=== PATIENT | male | born 1945 | race American Indian/Alaskan Native ===

== ENCOUNTER → 2018-05-21 09:12 | Outpatient (CLI) | payer MEDICARE, OTHER, SELFPAY ==
[2018-05-21 10:27] LABS: Alanine Aminotransferase 37 IU/L (21-72); Albumin 4.1 g/dL (3.5-5.0); Albumin Globulin Ratio 1.3 (1.0-2.8); Alkaline Phosphatase 52 U/L (38-126); Aspartate Aminotransferase 35 IU/L (17-59); BUN Creatinine Ratio 17.5 (6-22); Bilirubin Total 1.7 mg/dL (0.2-1.3); Blood Urea Nitrogen 14 mg/dL (9-20); Calcium 8.9 mg/dL (8.4-10.2); Carbon Dioxide 24 mmol/L (22-32); Chloride 106 mmol/L (98-107); Cholesterol 119 mg/dL (140-199); Estimated Glomerular Filt Rate > 60.0 mL/min (>60); Globulin 3.2 g/dL (1.7-4.1); Glucose 99 mg/dL (80-110); HDL Cholesterol 25 mg/dL (40-60); LDL Cholesterol Calculated 77 mg/dL (<100); Potassium 4.9 mmol/L (3.4-5.1); Sodium 141 mmol/L (137-145); Total Protein 7.3 g/dL (6.3-8.2); Triglycerides 87 mg/dL (35-150)
[2018-05-21 10:28] LABS: HEMOLYSIS 92 (0-50)
[2018-05-21 10:38] LABS: Basophils Absolute Auto 0 /uL (0-100); Basophils Percent Auto 0.5 % (0-2); Eosinophils Absolute Auto 100 /uL (0-450); Hemoglobin 14.4 g/dL (13.5-17.5); Lymphocytes Absolute Auto 2100 /uL (1100-4500); Lymphocytes Percent Auto 35.7 % (25-40); Mean Corpuscular HGB Conc 33.4 % (30-36); Mean Corpuscular Hemoglobin 30.1 PG (26-34); Mean Corpuscular Volume 90.2 fL (80-100); Monocytes Absolute Auto 600 /uL (0-900); Monocytes Percent Auto 10.8 % (3-14); Neutrophils Absolute Auto 3000 /uL (1500-7000); Red Blood Cell Count 4.77 X10^6/uL (4.5-5.9); White Blood Cell Count 5.8 X10^3/uL (4.5-11.0)
[2018-05-21 10:41] LABS: Add Manual Diff / Slide Review SLIDE REVIEW
[2018-05-21 10:54] LABS: Thyroid Stimulating Hormone 2.31 uIU/mL (0.47-4.68)
[2018-05-21 10:55] LABS: Prostate Specific Antigen Scrn 0.462 ng/mL (0.1-4.0)
[2018-05-21 11:15] LABS: Platelet Count 68 X10^3/uL (150-400); RBC Morphology Normal Morphology
[2018-05-21 11:16] LABS: Platelet Estimate Decreased on smear
[2018-05-21 11:27] LABS: Creatinine Urine Random 270.8 mg/dL
[2018-05-21 11:32] LABS: Microalbumi Creatinin Ratio Ur 3.6 ug/mg CR (<30)
== END ==
PROVIDERS: Family Provider Family Medicine; PCP Family Medicine; Visit Provider Family Medicine
DX: E78.5 Hyperlipidemia, unspecified (principal); I10 Essential (primary) hypertension; I25.10 Atherosclerotic heart disease of native coronary artery without angina pectoris; R89.9 Unspecified abnormal finding in specimens from other organs, systems and tissues; Z95.1 Presence of aortocoronary bypass graft; Z12.5 Encounter for screening for malignant neoplasm of prostate
CPT/HCPCS: 36415; 80053; 80061; 82043; 82570; 84443; 85025; G0103

== ENCOUNTER → 2018-06-18 15:47 | Outpatient (CLI) | payer MEDICARE, OTHER, SELFPAY ==
[2018-06-18 18:03] LABS: Add Manual Diff / Slide Review NO; Basophils Absolute Auto 0 /uL (0-100); Basophils Percent Auto 0.7 % (0-2); Eosinophils Absolute Auto 100 /uL (0-450); Eosinophils Percent Auto 1.5 % (2-4); Hematocrit 40.4 % (41-53); Hemoglobin 13.5 g/dL (13.5-17.5); Lymphocytes Absolute Auto 1900 /uL (1100-4500); Lymphocytes Percent Auto 29.9 % (25-40); Mean Corpuscular HGB Conc 33.4 % (30-36); Mean Corpuscular Hemoglobin 30.2 PG (26-34); Mean Corpuscular Volume 90.4 fL (80-100); Monocytes Absolute Auto 700 /uL (0-900); Monocytes Percent Auto 11.4 % (3-14); Neutrophils Absolute Auto 3500 /uL (1500-7000); Neutrophils Percent Auto 56.5 % (50-75); Platelet Count 245 X10^3/uL (150-400); Red Blood Cell Count 4.47 X10^6/uL (4.5-5.9); Red Cell Distribution Width 13.5 % (11.6-14.8); White Blood Cell Count 6.2 X10^3/uL (4.5-11.0)
== END ==
PROVIDERS: Family Provider Family Medicine; PCP Family Medicine; Visit Provider Family Medicine
DX: R89.9 Unspecified abnormal finding in specimens from other organs, systems and tissues (principal)
CPT/HCPCS: 36415; 85025

== ENCOUNTER → 2020-05-26 07:02 | Outpatient (CLI) | payer MEDICARE, OTHER, SELFPAY ==
[2020-05-26 08:40] LABS: Alanine Aminotransferase 32 IU/L (<50); Albumin Globulin Ratio 1.3 (1.0-2.8); BUN Creatinine Ratio 15.7 (6-22); Blood Urea Nitrogen 13 mg/dL (9-20); Calcium 9.1 mg/dL (8.4-10.2); Carbon Dioxide 29 mmol/L (22-32); Chloride 104 mmol/L (98-107); Cholesterol 126 mg/dL (140-199); Estimated Glomerular Filt Rate > 60.0 mL/min (>60); Globulin 3.5 g/dL (1.7-4.1); HDL Cholesterol 26 mg/dL (40-60); LDL Cholesterol Calculated 79 mg/dL (<100); Triglycerides 107 mg/dL (35-150)
[2020-05-26 08:42] LABS: HEMOLYSIS 222 (0-50)
[2020-05-26 08:44] LABS: Sodium 141 mmol/L (137-145)
[2020-05-26 09:10] LABS: Free T3, Triiodothyronine Free 2.81 pg/mL (2.77-5.27); Free T4, Direct Thyroxine 0.79 ng/dL (0.78-2.19)
== END ==
PROVIDERS: Family Provider Family Medicine; PCP Nurse Practitioner; Referring Provider Nurse Practitioner; Visit Provider Nurse Practitioner
DX: E78.5 Hyperlipidemia, unspecified (principal); G47.33 Obstructive sleep apnea (adult) (pediatric); I25.10 Atherosclerotic heart disease of native coronary artery without angina pectoris; Z95.1 Presence of aortocoronary bypass graft; Z79.899 Other long term (current) drug therapy
CPT/HCPCS: 36415; 80053; 80061; 84439; 84443; 84481

== ENCOUNTER → 2020-05-27 09:10 | Outpatient (CLI) | payer MEDICARE, OTHER, SELFPAY ==
[2020-05-27 10:20] LABS: Hemoglobin A1C% w Est Avg Glu 5.6 % (4.0-6.0)
[2020-05-27 10:36] LABS: Alanine Aminotransferase 29 IU/L (<50); Albumin Globulin Ratio 1.3 (1.0-2.8); Alkaline Phosphatase 56 U/L (38-126); Aspartate Aminotransferase 33 IU/L (17-59); Bilirubin Total 1.1 mg/dL (0.2-1.3); Blood Urea Nitrogen 13 mg/dL (9-20); Calcium 8.9 mg/dL (8.4-10.2); Carbon Dioxide 26 mmol/L (22-32); Chloride 105 mmol/L (98-107); Cholesterol 119 mg/dL (140-199); Estimated Glomerular Filt Rate > 60.0 mL/min (>60); Globulin 3.2 g/dL (1.7-4.1); Glucose 108 mg/dL (80-110); HDL Cholesterol 26 mg/dL (40-60); HEMOLYSIS < 15 (0-50); LDL Cholesterol Calculated 77 mg/dL (<100); Potassium 4.3 mmol/L (3.4-5.1); Sodium 138 mmol/L (137-145); Total Protein 7.2 g/dL (6.3-8.2); Triglycerides 81 mg/dL (35-150)
[2020-05-27 11:08] LABS: Free T4, Direct Thyroxine 0.86 ng/dL (0.78-2.19)
[2020-05-27 11:22] LABS: Thyroid Stimulating Hormone 3.29 uIU/mL (0.47-4.68)
== END ==
PROVIDERS: Family Provider Family Medicine; PCP Nurse Practitioner; Referring Provider Nurse Practitioner; Visit Provider Nurse Practitioner
DX: Z79.899 Other long term (current) drug therapy (principal); G47.33 Obstructive sleep apnea (adult) (pediatric); Z86.79 Personal history of other diseases of the circulatory system; Z13.1 Encounter for screening for diabetes mellitus
CPT/HCPCS: 36415; 80053; 80061; 83036; 84439; 84443; 84481

== ENCOUNTER → 2021-01-15 16:20 | Outpatient (CLI) | payer MEDICARE, OTHER, SELFPAY ==
[2021-01-19 13:16] LABS: Fecal Immunochemical Test Negative (Negative)
== END ==
PROVIDERS: Family Provider Family Medicine; PCP Nurse Practitioner; Referring Provider Nurse Practitioner; Visit Provider Nurse Practitioner
DX: Z12.11 Encounter for screening for malignant neoplasm of colon (principal)
CPT/HCPCS: 82274

== ENCOUNTER → 2021-09-07 07:00 | Outpatient (CLI) | payer MEDICARE, OTHER, SELFPAY ==
[2021-09-07 07:54] LABS: Alanine Aminotransferase 28 IU/L (<50); Albumin 3.9 g/dL (3.5-5.0); Albumin Globulin Ratio 1.3 (1.0-2.8); Alkaline Phosphatase 69 U/L (38-126); Aspartate Aminotransferase 28 IU/L (17-59); BUN Creatinine Ratio 17.3 (6-22); Bilirubin Total 1.7 mg/dL (0.2-1.3); Blood Urea Nitrogen 14 mg/dL (9-20); Calcium 8.6 mg/dL (8.4-10.2); Carbon Dioxide 24 mmol/L (22-32); Chloride 108 mmol/L (98-107); Cholesterol 115 mg/dL (140-199); Estimated Glomerular Filt Rate > 60 mL/min (>60); Globulin 2.9 g/dL (1.7-4.1); Glucose 114 mg/dL (80-110); HDL Cholesterol 28 mg/dL (40-60); HEMOLYSIS < 15 (0-50); LDL Cholesterol Calculated 72 mg/dL (<100); Sodium 141 mmol/L (137-145); Total Protein 6.8 g/dL (6.3-8.2); Triglycerides 76 mg/dL (35-150)
[2021-09-07 08:07] LABS: Microalbumin Urine Random 1.6 mg/dL (0-1.6)
[2021-09-07 08:08] LABS: Free T4, Direct Thyroxine 0.98 ng/dL (0.78-2.19)
[2021-09-07 08:14] LABS: Microalbumi Creatinin Ratio Ur 3.9 ug/mg CR (<30)
[2021-09-07 08:22] LABS: Thyroid Stimulating Hormone 2.54 uIU/mL (0.47-4.68)
== END ==
PROVIDERS: Family Provider Family Medicine; PCP Nurse Practitioner; Referring Provider Nurse Practitioner; Visit Provider Nurse Practitioner
DX: E78.2 Mixed hyperlipidemia (principal); I10 Essential (primary) hypertension
CPT/HCPCS: 36415; 80053; 80061; 82043; 82570; 84439; 84443; 84481

== ENCOUNTER 2021-09-22 16:21 | Emergency (ER) | payer MEDICARE, OTHER, SELFPAY ==
[2021-09-22 16:28] VITALS: BP 151/74; PULSE 56; RESP 16; TEMP 36.9; O2SAT 99; BMI 35.4
--- NOTE | 2021-09-22 16:32 | DI.RAD.S_ITS ---
PROCEDURE: XR CHEST 1V INDICATIONS: chest pain TECHNIQUE: One view of the chest was acquired. COMPARISON: [facility], , CHEST 2 VIEW, 04/15/2015, 10:25. FINDINGS: Surgical changes and devices: Status post CABG Lungs and pleura: Lungs are clear. No pleural effusions or pneumothorax. Mediastinum: Mediastinal contours appear normal. Heart size is normal. Bones and chest wall: No suspicious bony lesions. Overlying soft tissues appear unremarkable. IMPRESSION: No acute cardiopulmonary disease process. Dictated by: Meghana Lebron MD, PhD on 09/22/2021 at 16:10 Approved by: Meghana Lebron MD, PhD on 09/22/2021 at 16:10
[2021-09-22 17:27] LABS: Alanine Aminotransferase 28 IU/L (<50); Albumin 3.9 g/dL (3.5-5.0); Albumin Globulin Ratio 1.2 (1.0-2.8); Alkaline Phosphatase 65 U/L (38-126); Aspartate Aminotransferase 31 IU/L (17-59); BUN Creatinine Ratio 16.3 (6-22); Bilirubin Total 1.5 mg/dL (0.2-1.3); Blood Urea Nitrogen 13 mg/dL (9-20); Calcium 8.4 mg/dL (8.4-10.2); Carbon Dioxide 25 mmol/L (22-32); Chloride 108 mmol/L (98-107); Creatine Kinase 274 U/L (55-170); Estimated Glomerular Filt Rate > 60 mL/min (>60); Globulin 3.2 g/dL (1.7-4.1); Glucose 108 mg/dL (80-110); HEMOLYSIS < 15 (0-50); INR 1.1 (0.9-1.3); Lipase 70 U/L (23-300); Potassium 3.8 mmol/L (3.4-5.1); Prothrombin Time 12.9 SECONDS (10.1-12.7); Sodium 139 mmol/L (137-145); Total Protein 7.1 g/dL (6.3-8.2)
[2021-09-22 17:30] LABS: PTT Partial Thromboplastin Tim 34 SECONDS (26.4-36.2)
[2021-09-22 17:39] LABS: Troponin I < 0.012 ng/mL (0.01-0.034)
[2021-09-22 17:42] VITALS: BP 133/68; PULSE 62; O2SAT 97
[2021-09-22 17:43] LABS: CKMB % Relative Index 0.6 % (1.5-5.0); Creatine Kinase MB 1.62 ng/mL (<2.37)
[2021-09-22 17:48] LABS: Add Manual Diff / Slide Review NO; Basophils Absolute Auto 0 /uL (0-100); Basophils Percent Auto 0.6 % (0-2); Eosinophils Absolute Auto 100 /uL (0-450); Eosinophils Percent Auto 0.9 % (2-4); Hematocrit 37.5 % (41-53); Hemoglobin 12.9 g/dL (13.5-17.5); Lymphocytes Absolute Auto 1700 /uL (1100-4500); Lymphocytes Percent Auto 27.7 % (25-40); Mean Corpuscular HGB Conc 34.5 % (30-36); Mean Corpuscular Hemoglobin 30.5 PG (26-34); Mean Corpuscular Volume 88.4 fL (80-100); Monocytes Absolute Auto 700 /uL (0-900); Monocytes Percent Auto 11.8 % (3-14); Neutrophils Absolute Auto 3700 /uL (1500-7000); Platelet Count 213 X10^3/uL (150-400); Red Blood Cell Count 4.24 X10^6/uL (4.5-5.9); White Blood Cell Count 6.3 X10^3/uL (4.5-11.0)
[2021-09-22 18:00] VITALS: BP 135/72; PULSE 50; RESP 25; O2SAT 97
--- NOTE | 2021-09-22 18:23 | ED_ITS ---
HPI - General Adult General Chief complaint: Syncope Stated complaint: Fainted, Chest pains Time Seen by Provider: 09/22/21 18:09 History of Present Illness HPI narrative: 76-year-old gentleman with history of coronary artery disease post bypass approximately 6 years ago hyperlipidemia, hypertension who was at home this evening took a sip of water have full mouth of water and began coughing. He continued coughing went from the living room to the kitchen to spit the water out and had a syncopal episode in the kitchen. He has significant musculoskeletal pain linearly across his anterior chest wall as his significant complaint. At this point he has no headache, no acute neurologic changes he feels completely normal. He reports recently no fevers, cough, chills, chest pain, exertional dyspnea or orthopnea. He has had no recent palpitations headaches, weakness, paresthesias. Does note that he has had some upper abdominal pain and early satiety that he talk to his primary care doctor about today with upper and lower endoscopy scheduled. Related Data Home Medications Medication Instructions Recorded Confirmed aspirin 81 mg tablet,delayed 81 mg PO DAILY 07/26/17 09/22/21 release cholecalciferol (vitamin D3) 25 1,000 unit PO DAILY 01/25/18 09/22/21 mcg (1,000 unit) capsule Respironics Dreamstation CPAP #1 ea 07/24/18 09/22/21 Previous Rx's Medication Instructions Recorded [id number] 3.5 See Rx Instructions .Route 04/06/20 mg-10,000 unit/mL-1 % ear .COMPLEX #10 mL drops,susp omega-3 fatty acids 500 mg capsule 1,000 mg PO DAILY #180 caps 04/06/20 triamcinolone acetonide 0.1 % 1 applic topical BID PRN ear rash 04/06/20 topical cream #15 grams cephalexin 500 mg capsule 500 mg PO QID PRN ear infection 05/15/20 #40 caplets atorvastatin 40 mg tablet See Rx Instructions .Route 09/10/21 .COMPLEX #90 tabs metoprolol tartrate 25 mg tablet See Rx Instructions .Route 09/10/21 .COMPLEX #180 tabs Allergies Allergy/AdvReac Type Severity Reaction Status Date / Time No Known Allergies Allergy Uncoded 09/22/21 15:33 Review of Systems Review of Systems Narrative: Remainder of complete review of systems is otherwise unremarkable except for that included in the HPI. 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 Obesity (BMI 30-39.9) Obstructive sleep apnea of adult Personal history of coronary artery disease Snoring Status post double vessel coronary artery bypass (01/17/17) Wears contact lenses Surgical History Anesthesia Family History Father Alzheimer's disease Mother Diabetes mellitus Social History marital status: household members: spouse lives independently: Yes caregiver/support person: No Smoking Status: Never smoker alcohol intake: never additional social history: Member of the [facility] [employer] Smoking Status: Never smoker Exam Initial Vital Signs Initial Vital Signs: Vital Signs Temperature 98.4 F 09/22/21 16:28 Pulse Rate 56 L 09/22/21 16:28 Respiratory Rate 16 09/22/21 16:28 Blood Pressure 151/74 H 09/22/21 16:28 Pulse Oximetry 99 09/22/21 16:28 Oxygen Delivery Method 09/22/21 16:28 General: Healthy appearing, in no acute distress. Able to give a complete and coherent history. Well-nourished well-developed HEENT: Moist mucous membranes, normal sclera with reactive pupils, Neck: No JVD, supple Respiratory: Lungs are clear to auscultation, no wheezing no rales no rhonchi. Full and symmetrical air movement Cardiac: Regular rate and rhythm no murmurs no bruits Chest: No bruising or contusion however he does have tenderness linearly across his anterior chest/mid sternum. Abdomen: Soft, nontender, good bowel tones, no flank pain Skin: Warm and dry, no rashes Neurologic: Grossly neurologically intact with no obvious asymmetries or abnormalities Extremities: No trauma, well perfused Psych: Cooperative, appropriate insight and affect Course Orders Ordered: ED Orders 09/22/21 16:32 XR chest 1V Stat EKG-12 Lead Stat 09/22/21 16:58 Complete Blood Count AUTO DIFF Stat Comprehensive Metabolic Panel Stat Lipase Stat Magnesium Stat Partial Thromboplastin Time Stat Prothrombin Time INR Stat Troponin & CK Cardiac Panel Stat Vital Signs Vital signs: Vital Signs - 8 hr 09/22/21 16:28 Temperature 98.4 F Pulse Rate 56 L Respiratory Rate 16 Blood Pressure 151/74 H Pulse Oximetry 99 Oxygen Delivery Method Room Air Medical Decision Making Lab Data Result diagrams: 09/22/21 16:58 09/22/21 16:58 Labs: Lab Results 09/22/21 09/22/21 09/22/21 Range/Units 16:58 16:58 16:58 WBC 6.3 (4.5-11.0) X10^3/uL RBC 4.24 L (4.5-5.9) X10^6/uL Hgb 12.9 L (13.5-17.5) g/dL Hct 37.5 L (41-53) % MCV 88.4 (80-100) fL MCH 30.5 (26-34) PG MCHC 34.5 (30-36) % RDW 13.0 (11.6-14.8) % Plt Count 213 (150-400) X10^3/uL Neut % (Auto) 59.0 (50-75) % Lymph % (Auto) 27.7 (25-40) % Bibb % (Auto) 11.8 (3-14) % Eos % (Auto) 0.9 L (2-4) % Baso % (Auto) 0.6 (0-2) % Neut # (Auto) 3700 (1465-0754) /uL Lymph # (Auto) 1700 (0490-6173) /uL Bibb # (Auto) 700 (0-900) /uL Eos # (Auto) 100 (0-450) /uL Baso # (Auto) 0 (0-100) /uL PT 12.9 H (10.1-12.7) SECONDS INR 1.1 (0.9-1.3) APTT 34 (26.4-36.2) SECONDS Sodium 139 (137-145) mmol/L Potassium 3.8 (3.4-5.1) mmol/L Chloride 108 H (98-107) mmol/L Carbon Dioxide 25 (22-32) mmol/L BUN 13 (9-20) mg/dL Creatinine 0.80 (0.66-1.25) mg/dL Estimated GFR > 60 (>60) mL/min BUN/Creatinine Ratio 16.3 (6-22) Glucose 108 (80-110) mg/dL Calcium 8.4 (8.4-10.2) mg/dL Magnesium 2.0 (1.6-2.3) mg/dL Total Bilirubin 1.5 H (0.2-1.3) mg/dL AST 31 (17-59) IU/L ALT 28 (<50) IU/L Alkaline Phosphatase 65 (38-126) U/L Total Creatine Kinase 274 H (55-170) U/L CK-MB (CK-2) 1.62 (<2.37) ng/mL CK-MB (CK-2) Rel Index 0.6 L (1.5-5.0) % Troponin I < 0.012 (0.01-0.034) ng/mL Total Protein 7.1 (6.3-8.2) g/dL Albumin 3.9 (3.5-5.0) g/dL Globulin 3.2 (1.7-4.1) g/dL Albumin/Globulin Ratio 1.2 (1.0-2.8) Lipase 70 (23-300) U/L MDM Narrative Medical decision making narrative: 76-year-old gentleman with a syncopal episode after ostensibly choking on some water and having coughing episode. Labs do not indicate acute coronary syndrome, stroke, infection, significant anemia, renal or liver abnormalities. Clinical exam is entirely benign with the exception of musculoskeletal chest pain rate appears that he hit the edge of his kitchen cupboard. I suspect that he had a vasovagal take syncope from the severity of his coughing against a closed glottis as he was trying to not spit up the water in his mouth. At this point findings and concerns are reviewed with patient and his . There is no indication for hospital admission at this time and they are safe for home discharge will recommend ibuprofen and Tylenol to help with the musculoskeletal pain and did caution him that he will likely have more musculoskeletal pain tomorrow. Discharge Plan Departure Patient Disposition: Home Clinical Impression: Acute chest wall pain Syncope Qualifiers: Syncope type: unspecified Qualified Code(s): R55 - Syncope and collapse Instructions: DI for Syncope in Adults (Fainting) Activity Restrictions/Additional Instructions: Thank you for coming in today I suspect that you had this syncopal episode because of the persistent coughing why you are trying to keep her mouth closed so that you did not spit water all across the living room. There is no evidence of heart attack, heart arrhythmias, infection, significant blood loss, liver abnormalities, kidney abnormalities or stroke. At this time there is no indication that you need to stay in the hospital. The pain across your anterior chest is likely because you did hit your chest on the counter as you fell. Using 400 mg of ibuprofen (2 vwvq-iqu-bkwrnrn pills) and 1 Tylenol every 6 hours can be very helpful in controlling pain. If you find your having other episodes or unusual findings this evening, please feel free to return to the ER Prescriptions: No Action cephalexin 500 mg capsule 500 mg PO QID PRN (Reason: ear infection) Qty: 40 0RF Rx Instructions: Take 1 tab by mouth for ear infection atorvastatin 40 mg tablet See Rx Instructions .ROUTE .COMPLEX Qty: 90 0RF Dose Instruction: Take one tablet by mouth every evening Rx Instructions: Take one tablet by mouth every evening metoprolol tartrate 25 mg tablet See Rx Instructions .ROUTE .COMPLEX Qty: 180 0RF Dose Instruction: Take 1/2 tablet (12.5mg) by mouth twice daily, due for labs and appointment Rx Instructions: Take 1/2 tablet (12.5mg) by mouth twice daily, due for labs and appointment [id number]-[id number]-OO 3.5-10,000-1 mg/mL-unit/mL-% drops,suspension See Rx Instructions .ROUTE .COMPLEX Qty: 10 4RF Dose Instruction: Instill 4 drops into affected ear(s) 3 times daily Rx Instructions: Instill 4 drops into affected ear(s) 3 times daily omega-3 fatty acids 500 mg capsule 1,000 mg PO DAILY Qty: 180 3RF Rx Instructions: Take 1 caps daily for triglycerides triamcinolone acetonide 0.1 % cream 1 applic Topical BID PRN (Reason: ear rash) Qty: 15 2RF Rx Instructions: Apply topically twice daily as needed for ear rash aspirin 81 mg tablet,delayed release (DR/EC) 81 mg PO DAILY cholecalciferol (vitamin D3) 1,000 unit capsule 1,000 unit PO DAILY (DME) RespirBioLeaps Dreamstation CPAP Qty: 1 Dose Instruction: As directed Label Comments: Pressure: 6-12 cmH2O DME: [facility] Rx Instructions: As directed Referrals: Melvina Batres ARNP [Primary Care Provider] -
[2021-09-22 18:30] VITALS: BP 153/87; PULSE 50; RESP 20; O2SAT 99
[2021-09-22] MEDS: ACETAMINOPHEN 325 MG TABLET PO (18:45)
[2021-09-22] MEDS: IBUPROFEN 400 MG TABLET PO (18:46)
--- NOTE | 2021-09-22 18:50 | PC.NURSE ---
pt states he took a sip of water and then started having a random coughing attack, so he stood up and ran into the kitchen to try and spit the water out but as he was leaning over the sink, he must have passed out, he woke up sitting on the floor leaning against the counter and had chest pain in a horizontal line like he fell on his counter. when patient went to his physical with his doctor, they sent him here for work up.
== END 2021-09-22 18:58 | disposition home or self-care (01) ==
PROVIDERS: Emergency Medicine; Emergency Provider Emergency Medicine; Family Provider Family Medicine; PCP Nurse Practitioner
DX: R07.89 Other chest pain (principal); R55 Syncope and collapse; R10.10 Upper abdominal pain, unspecified
CPT/HCPCS: 71045; 80053; 82550; 82553; 83690; 83735; 84484; 85025; 85610; 85730; 93005; 93010; 99283; 99284

== ENCOUNTER → 2021-10-22 07:00 | Outpatient (CLI) | payer MEDICARE, OTHER, SELFPAY ==
[2021-10-22 09:07] LABS: HEMOLYSIS < 15 (0-50); Iron 99 ug/dL (49-181)
[2021-10-22 09:18] LABS: Percent Iron Saturation 30 % (20-50); Total Iron Binding Capacity 335 ug/dL (261-462); Transferrin 241 mg/dL (206-381)
[2021-10-22 09:42] LABS: Ferritin 100 ng/mL (18-464)
[2021-10-22 10:14] LABS: Folate 7.7 ng/mL (2.76-20.0); Vitamin B12 240 pg/mL (239-931)
== END ==
PROVIDERS: Family Provider Family Medicine; PCP Nurse Practitioner; Referring Provider Physician Assistant; Visit Provider Physician Assistant
DX: D64.9 Anemia, unspecified (principal)
CPT/HCPCS: 36415; 82607; 82728; 82746; 83540; 83550

== ENCOUNTER → 2022-01-03 08:01 | Outpatient (CLI) | payer MEDICARE, OTHER, SELFPAY ==
[2022-01-03 08:29] LABS: Add Manual Diff / Slide Review NO; Basophils Absolute Auto 0 /uL (0-100); Basophils Percent Auto 0.4 % (0-2); Eosinophils Absolute Auto 100 /uL (0-450); Eosinophils Percent Auto 1.4 % (2-4); Hemoglobin 14.1 g/dL (13.5-17.5); Lymphocytes Absolute Auto 2000 /uL (1100-4500); Lymphocytes Percent Auto 31.4 % (25-40); Mean Corpuscular HGB Conc 33.7 % (30-36); Mean Corpuscular Hemoglobin 30.6 PG (26-34); Mean Corpuscular Volume 90.9 fL (80-100); Monocytes Absolute Auto 600 /uL (0-900); Monocytes Percent Auto 9.3 % (3-14); Neutrophils Absolute Auto 3600 /uL (1500-7000); Neutrophils Percent Auto 57.5 % (50-75); Platelet Count 71 X10^3/uL (150-400); Red Blood Cell Count 4.62 X10^6/uL (4.5-5.9); Red Cell Distribution Width 13.2 % (11.6-14.8); White Blood Cell Count 6.3 X10^3/uL (4.5-11.0)
[2022-01-03 08:49] LABS: Alanine Aminotransferase 35 IU/L (<50); Albumin 4.1 g/dL (3.5-5.0); Albumin Globulin Ratio 1.2 (1.0-2.8); Alkaline Phosphatase 76 U/L (38-126); Aspartate Aminotransferase 34 IU/L (17-59); Bilirubin Total 0.8 mg/dL (0.2-1.3); Blood Urea Nitrogen 13 mg/dL (9-20); Calcium 8.8 mg/dL (8.4-10.2); Carbon Dioxide 28 mmol/L (22-32); Chloride 101 mmol/L (98-107); Estimated Glomerular Filt Rate > 60 mL/min (>60); Globulin 3.4 g/dL (1.7-4.1); Glucose 121 mg/dL (80-110); Sodium 137 mmol/L (137-145); Total Protein 7.5 g/dL (6.3-8.2)
[2022-01-03 08:58] LABS: HEMOLYSIS 68 (0-50)
[2022-01-03 08:59] LABS: Potassium 5.2 mmol/L (3.4-5.1)
[2022-01-03 09:19] LABS: Prostate Specific Antigen Scrn 0.524 ng/mL (0.1-4.0)
[2022-01-03 17:49] LABS: Hep C Virus Ab w/Reflex Quant NEGATIVE s/c (NEGATIVE)
== END ==
PROVIDERS: Family Provider Family Medicine; PCP Nurse Practitioner; Referring Provider Nurse Practitioner; Visit Provider Nurse Practitioner
DX: B35.1 Tinea unguium (principal); Z12.5 Encounter for screening for malignant neoplasm of prostate; D64.9 Anemia, unspecified; R17 Unspecified jaundice; Z79.899 Other long term (current) drug therapy
CPT/HCPCS: 36415; 80053; 85025; 86803; G0103

== ENCOUNTER → 2022-01-10 07:12 | Outpatient (CLI) | payer MEDICARE, OTHER, SELFPAY ==
[2022-01-10 09:42] LABS: Iron 95 ug/dL (49-181)
[2022-01-10 09:51] LABS: Percent Iron Saturation 30 % (20-50); Total Iron Binding Capacity 320 ug/dL (261-462)
[2022-01-10 10:18] LABS: Ferritin 74 ng/mL (18-464)
[2022-01-10 10:49] LABS: Folate 6.2 ng/mL (2.76-20.0); Vitamin B12 248 pg/mL (239-931)
== END ==
PROVIDERS: Family Provider Family Medicine; PCP Nurse Practitioner; Referring Provider Physician Assistant; Visit Provider Physician Assistant
DX: D64.9 Anemia, unspecified (principal)
CPT/HCPCS: 36415; 82607; 82728; 82746; 83540; 83550

== ENCOUNTER → 2022-04-15 07:52 | Outpatient (CLI) | payer MEDICARE, OTHER, SELFPAY ==
[2022-04-15 09:07] LABS: Add Manual Diff / Slide Review NO; Basophils Absolute Auto 0 /uL (0-100); Basophils Percent Auto 0.5 % (0-2); Eosinophils Absolute Auto 100 /uL (0-450); Eosinophils Percent Auto 1.2 % (2-4); Hematocrit 37.6 % (41-53); Hemoglobin 12.7 g/dL (13.5-17.5); Lymphocytes Absolute Auto 1400 /uL (1100-4500); Mean Corpuscular HGB Conc 33.8 % (30-36); Mean Corpuscular Hemoglobin 29.9 PG (26-34); Mean Corpuscular Volume 88.5 fL (80-100); Monocytes Absolute Auto 600 /uL (0-900); Monocytes Percent Auto 10.4 % (3-14); Neutrophils Absolute Auto 3400 /uL (1500-7000); Neutrophils Percent Auto 61.9 % (50-75); Platelet Count 220 X10^3/uL (150-400); Red Blood Cell Count 4.24 X10^6/uL (4.5-5.9); Red Cell Distribution Width 13.1 % (11.6-14.8); White Blood Cell Count 5.5 X10^3/uL (4.5-11.0)
[2022-04-15 09:34] LABS: Alanine Aminotransferase 31 IU/L (<50); Albumin 3.8 g/dL (3.5-5.0); Albumin Globulin Ratio 1.4 (1.0-2.8); Alkaline Phosphatase 86 U/L (38-126); Aspartate Aminotransferase 26 IU/L (17-59); Bilirubin Unconjugated 0.7 mg/dL (0.0-1.1); Globulin 2.7 g/dL (1.7-4.1); HEMOLYSIS < 15 (0-50); Total Protein 6.5 g/dL (6.3-8.2)
== END ==
PROVIDERS: Family Provider Family Medicine; PCP Nurse Practitioner; Referring Provider Nurse Practitioner; Visit Provider Nurse Practitioner
DX: D69.1 Qualitative platelet defects (principal); B35.1 Tinea unguium; Z79.899 Other long term (current) drug therapy
CPT/HCPCS: 36415; 80076; 85025

== ENCOUNTER → 2022-04-25 09:41 | Outpatient (CLI) | payer MEDICARE, OTHER, SELFPAY ==
[2022-04-25 11:16] LABS: BUN Creatinine Ratio 14.5 (6-22); Blood Urea Nitrogen 12 mg/dL (9-20); Calcium 8.5 mg/dL (8.4-10.2); Carbon Dioxide 23 mmol/L (22-32); Chloride 104 mmol/L (98-107); Estimated Glomerular Filt Rate > 60 mL/min (>60); Glucose 112 mg/dL (80-110); HEMOLYSIS < 15 (0-50); Sodium 138 mmol/L (137-145)
== END ==
PROVIDERS: Family Provider Family Medicine; PCP Nurse Practitioner; Referring Provider Nurse Practitioner; Visit Provider Nurse Practitioner
DX: Z01.812 Encounter for preprocedural laboratory examination (principal)
CPT/HCPCS: 36415; 80048

== ENCOUNTER → 2022-04-27 11:44 | Outpatient (CLI) | payer MEDICARE, OTHER, SELFPAY ==
--- NOTE | 2022-04-27 | DI.CT.S_ITS ---
PROCEDURE: CT ABDOMEN PELVIS W CON INDICATIONS: Abnormal weight loss TECHNIQUE: After the administration of oral and intravenous contrast, axial sections were acquired from the lung bases to the pubic symphysis. Coronal and sagittal reformats were performed. For radiation dose reduction, the following was used: automated exposure control, adjustment of mA and/or kV according to patient size. COMPARISON:None. FINDINGS: Image quality: Excellent. Lung bases: Peripheral reticulation in the lung bases. Heart: No significant findings. ABDOMEN: Liver: Unremarkable. Gallbladder: Unremarkable. Biliary ducts: Unremarkable. Pancreas: Unremarkable. Spleen: Unremarkable. Adrenal Glands: Unremarkable. Kidneys and Ureters: Unremarkable. Stomach and Bowel: Colonic diverticulosis without evidence of diverticulitis. Peritoneum: No abnormal intraperitoneal fluid. No free air. Ventral Wall: Tiny umbilical hernia containing fat. Abdominal Nodes: No retroperitoneal or mesenteric adenopathy by size criteria. Vessels: Aorta and inferior vena cava are normal in size. PELVIS: Pelvic Organs: Unremarkable. Bladder: Unremarkable. Pelvic Nodes: No enlarged lymph nodes. Miscellaneous: Fat within the inguinal canals. Bones: Partial lumbarization S1. IMPRESSION: 1. No findings to explain the patient's abnormal weight loss. 2. Bibasilar reticulation, which may indicate interstitial lung disease. Correlate with progressive dyspnea. If positive, consider high-resolution chest CT for complete characterization. Dictated by: Carlos Fragoso M.D. on 04/27/2022 at 14:46 Approved by: Carlos Fragoso M.D. on 04/27/2022 at 14:50
== END ==
PROVIDERS: Family Provider Family Medicine; PCP Nurse Practitioner; Referring Provider Nurse Practitioner; Visit Provider Nurse Practitioner
DX: R63.4 Abnormal weight loss (principal); R10.9 Unspecified abdominal pain; R19.4 Change in bowel habit; K57.90 Diverticulosis of intestine, part unspecified, without perforation or abscess without bleeding
CPT/HCPCS: 74177; Q9967

== ENCOUNTER → 2022-04-28 07:12 | Outpatient (CLI) | payer MEDICARE, OTHER, SELFPAY ==
[2022-04-28 08:42] LABS: Clostridium Difficile Tox PCR Negative for C. diff (Negative)
[2022-05-03 11:57] LABS: C difficie Toxins A and B, EIA Negative (Negative)
== END ==
PROVIDERS: Family Provider Family Medicine; PCP Nurse Practitioner; Referring Provider Nurse Practitioner; Visit Provider Nurse Practitioner
DX: R19.7 Diarrhea, unspecified (principal)
CPT/HCPCS: 87045; 87177; 87324; 87493; 87899

== ENCOUNTER → 2023-05-08 08:59 | Outpatient (CLI) | payer MEDICARE, OTHER, SELFPAY ==
[2023-05-08 10:16] LABS: Add Manual Diff / Slide Review NO; Basophils Absolute Auto 0 /uL (0-100); Basophils Percent Auto 0.6 % (0-2); Eosinophils Absolute Auto 100 /uL (0-450); Eosinophils Percent Auto 1.7 % (2-4); Hematocrit 38.9 % (41-53); Hemoglobin 13.2 g/dL (13.5-17.5); Lymphocytes Absolute Auto 1500 /uL (1100-4500); Mean Corpuscular HGB Conc 33.9 % (30-36); Mean Corpuscular Hemoglobin 30.8 PG (26-34); Mean Corpuscular Volume 90.9 fL (80-100); Monocytes Absolute Auto 600 /uL (0-900); Monocytes Percent Auto 10.3 % (3-14); Neutrophils Absolute Auto 3400 /uL (1500-7000); Neutrophils Percent Auto 61.4 % (50-75); Platelet Count 263 X10^3/uL (150-400); Red Blood Cell Count 4.28 X10^6/uL (4.5-5.9); Red Cell Distribution Width 12.9 % (11.6-14.8); White Blood Cell Count 5.6 X10^3/uL (4.5-11.0)
[2023-05-08 10:29] LABS: Hemoglobin A1C% w Est Avg Glu 5.6 % (4.0-6.0)
[2023-05-08 11:03] LABS: Alanine Aminotransferase 32 IU/L (<50); Albumin 3.9 g/dL (3.5-5.0); Albumin Globulin Ratio 1.2 (1.0-2.8); Alkaline Phosphatase 68 U/L (38-126); Aspartate Aminotransferase 27 IU/L (17-59); BUN Creatinine Ratio 16.9 (6-22); Bilirubin Total 1.1 mg/dL (0.2-1.3); Blood Urea Nitrogen 15 mg/dL (9-20); Calcium 9.1 mg/dL (8.4-10.2); Carbon Dioxide 26 mmol/L (22-32); Chloride 106 mmol/L (98-107); Cholesterol 120 mg/dL (140-199); Estimated Glomerular Filt Rate > 60 mL/min (>60); Globulin 3.2 g/dL (1.7-4.1); Glucose 103 mg/dL (80-110); HDL Cholesterol 32 mg/dL (40-60); HEMOLYSIS < 15 (0-50); LDL Cholesterol Calculated 72 mg/dL (<100); Potassium 4.4 mmol/L (3.4-5.1); Sodium 138 mmol/L (137-145); Total Protein 7.1 g/dL (6.3-8.2); Triglycerides 78 mg/dL (35-150)
[2023-05-08 11:10] LABS: Creatinine Urine Random 131.1 mg/dL; Microalbumin Urine Random < 0.6 mg/dL (0-1.6)
[2023-05-08 11:18] LABS: Free T4, Direct Thyroxine 0.93 ng/dL (0.78-2.19)
[2023-05-08 11:31] LABS: Thyroid Stimulating Hormone 2.29 uIU/mL (0.47-4.68)
[2023-05-08 16:22] LABS: HIV 1 & 2 Ab/Ag 4th Gen Combo NEGATIVE (NEGATIVE)
== END ==
PROVIDERS: Family Provider Family Medicine; PCP Nurse Practitioner; Referring Provider Nurse Practitioner; Visit Provider Nurse Practitioner
DX: D69.6 Thrombocytopenia, unspecified (principal); Z79.899 Other long term (current) drug therapy; I10 Essential (primary) hypertension; D69.1 Qualitative platelet defects; D50.9 Iron deficiency anemia, unspecified; E78.2 Mixed hyperlipidemia; R73.01 Impaired fasting glucose; Z11.4 Encounter for screening for human immunodeficiency virus [HIV]
CPT/HCPCS: 36415; 80053; 80061; 82043; 82570; 83036; 84439; 84443; 84481; 85025; 87389

== ENCOUNTER → 2023-05-26 10:11 | Outpatient (CLI) | payer MEDICARE, OTHER, SELFPAY ==
--- NOTE | 2023-05-26 10:12 | DI.RAD.S_ITS ---
PROCEDURE: FL BARIUM SWALLOW INDICATIONS: Difficulty swallowing meds and foods COMPARISON: None. FINDINGS: Function: There were a few episodes of mild tertiary contractions resulting in delayed and mild retrograde flow of ingested oral contrast. Otherwise, normal esophageal peristalsis. No elicited gastroesophageal reflux. There is normal transit of a calibrated barium tablet through the esophagus into the stomach. Morphology: Air-contrast images demonstrate normal mucosal morphology. Single contrast views show no esophageal strictures, extrinsic mass effects, or diverticula. Limited images of the stomach demonstrate normal appearance. IMPRESSION: A few episodes of mild tertiary esophageal contractions resulting in delayed and mild retrograde flow of ingested oral contrast. Otherwise, negative fluoroscopic barium swallow examination. Dictated by: Teo Morel M.D. on 05/26/2023 at 13:05 Approved by: Teo Morel M.D. on 05/26/2023 at 13:08
== END ==
PROVIDERS: Family Provider Family Medicine; PCP Nurse Practitioner; Referring Provider Nurse Practitioner; Visit Provider Nurse Practitioner
DX: R13.10 Dysphagia, unspecified (principal)
CPT/HCPCS: 74220

== ENCOUNTER → 2023-08-16 10:35 | Outpatient (CLI) | payer MEDICARE, OTHER, SELFPAY ==
--- NOTE | 2023-08-16 10:37 | DI.RAD.S_ITS ---
PROCEDURE: XR CHEST 2V INDICATIONS: cough and acute onset SOB TECHNIQUE: 2 views of the chest were acquired. COMPARISON: [facility], , XR CHEST 1V, 09/22/2021, 16:46. FINDINGS: Surgical changes and devices: Median sternotomy wires and surgical clips are seen. Lungs and pleura: There is pulmonary vascular congestion and increased interstitial opacities suggestive of pulmonary edema versus pneumonitis. No pleural effusions or pneumothorax. Mediastinum: Mediastinal contours are normal. Heart size is enlarged. Bones and chest wall: No suspicious bony abnormalities. Soft tissues appear unremarkable. IMPRESSION: Cardiomegaly and congestion with suggestion of pulmonary edema versus pneumonitis. No pleural effusion or pneumothorax. Dictated by: All Hatfield M.D. on 08/16/2023 at 16:14 Approved by: All Hatfield M.D. on 08/16/2023 at 16:16
== END ==
LOC: RAD 10:36
PROVIDERS: Family Provider Family Medicine; PCP Nurse Practitioner; Referring Provider Nurse Practitioner; Visit Provider Nurse Practitioner
DX: I51.7 Cardiomegaly (principal); R09.89 Other specified symptoms and signs involving the circulatory and respiratory systems; R05.9 Cough, unspecified; R06.02 Shortness of breath
CPT/HCPCS: 71046

== ENCOUNTER → 2023-10-06 08:05 | Outpatient (CLI) | payer MEDICARE, OTHER, SELFPAY ==
[2023-10-06 10:37] LABS: Prostate Specific Antigen Scrn 0.644 ng/mL (0.1-4.0)
== END ==
PROVIDERS: Family Provider Family Medicine; PCP Nurse Practitioner; Referring Provider Nurse Practitioner; Visit Provider Nurse Practitioner
DX: Z12.5 Encounter for screening for malignant neoplasm of prostate (principal)
CPT/HCPCS: 36415; G0103

== ENCOUNTER → 2023-10-09 15:21 | Outpatient (CLI) | payer MEDICARE, OTHER, SELFPAY ==
--- NOTE | 2023-10-09 15:23 | DI.RAD.S_ITS ---
PROCEDURE: XR CHEST 2V INDICATIONS: cough, SOB, recent COVID infection TECHNIQUE: 2 views of the chest were acquired. COMPARISON: [facility], CR, XR CHEST 2V, 08/16/2023, 10:36. [facility], CR, XR CHEST 1V, 09/22/2021, 16:46. FINDINGS: Surgical changes and devices: Sternotomy wires. Mediastinal surgical clips. Lungs and pleura: Increased pulmonary markings. No pneumothorax. No effusions. Mediastinum: Mediastinal contours are normal. Heart size is enlarged. Bones and chest wall: No suspicious bony abnormalities. Soft tissues appear unremarkable. IMPRESSION: Increased pulmonary markings, which could represent viral pneumonia or fluid overload. Dictated by: Carlos Fragoso M.D. on 10/10/2023 at 10:33 Approved by: Carlos Fragoso M.D. on 10/10/2023 at 10:36
== END ==
PROVIDERS: Family Provider Family Medicine; PCP Nurse Practitioner; Referring Provider Nurse Practitioner; Visit Provider Nurse Practitioner
DX: J98.4 Other disorders of lung (principal); I51.7 Cardiomegaly; R05.9 Cough, unspecified; R06.02 Shortness of breath
CPT/HCPCS: 71046

== ENCOUNTER → 2023-10-17 12:49 | Outpatient (CLI) | payer MEDICARE, OTHER, SELFPAY ==
--- NOTE | 2023-10-17 12:53 | DI.CT.S_ITS ---
PROCEDURE: CT CHEST HIGH RESOLUTION INDICATIONS: Eval for pulm fibrosis TECHNIQUE: Noncontrast 1.0 and 5.0 mm thick contiguous axial sections from the pulmonary apex to the posterior costophrenic angles, with 7 mm thick coronal and sagittal MIP reformats. 1 mm thick dynamic expiratory images acquired through the upper, mid, and lower lungs. 1.0 mm thick axial sections acquired from the jossy to the posterior costophrenic angles in the prone end-inspiration position. For radiation dose reduction, the following was used: automated exposure control, adjustment of mA and/or kV according to patient size. COMPARISON: None. FINDINGS: Image quality: Diagnostic Lungs and pleura: Subpleural predominant moderate reticulation throughout the lungs, without definite honeycombing. Traction bronchiectasis present. Findings predominantly involves the anterior upper lobes, in the posterolateral lower lobes. These findings persist on prone imaging. No pleural effusions. No dense airspace disease. Mediastinum, heart, and esophagus: Coronary calcifications. No hiatal hernia. Annular calcifications. Postsurgical changes. No pathologic lymph nodes by size criteria. Chest wall and thyroid: Unremarkable. Sternotomy wires. Upper abdomen: No gross abnormality on these noncontrast images Bones: Sternotomy wires. Degenerative changes. IMPRESSION: Subpleural reticulation, moderate in severity, without definite honeycombing. No dense consolidation or pleural effusions. In the setting of ILD, consider future followup to assess for progression and any pulmonary nodules. 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 Dictated by: Drew Elkins M.D. on 10/18/2023 at 10:34 Approved by: Drew Elkins M.D. on 10/18/2023 at 10:49
== END ==
LOC: CT 12:50
PROVIDERS: Family Provider Family Medicine; PCP Nurse Practitioner; Referring Provider Student in an Organized Health Care Education/Training Program; Visit Provider Student in an Organized Health Care Education/Training Program
DX: R06.00 Dyspnea, unspecified (principal); J47.9 Bronchiectasis, uncomplicated; I25.10 Atherosclerotic heart disease of native coronary artery without angina pectoris
CPT/HCPCS: 71250

== ENCOUNTER → 2023-10-25 11:01 | Outpatient (CLI) | payer MEDICARE, OTHER, SELFPAY ==
[2023-10-25 19:16] LABS: Rheumatoid Factor < 8.6 IU/mL (<12.0)
[2023-10-26 18:36] LABS: SS A Ro Sjogrens Antibody < 0.2 AI (0.0-0.9); SS B La Sjogrens Antibody < 0.2 AI (0.0-0.9)
[2023-10-27 10:10] LABS: CCP Antibodies IgG/IgA 4 units (0-19)
== END ==
PROVIDERS: Family Provider Family Medicine; PCP Nurse Practitioner; Referring Provider Student in an Organized Health Care Education/Training Program; Visit Provider Student in an Organized Health Care Education/Training Program
DX: J98.4 Other disorders of lung (principal)
CPT/HCPCS: 36415; 86038; 86200; 86235; 86430